=== PATIENT | male | born 1990 | race Caucasian/White ===

== ENCOUNTER 2025-09-29 14:31 | Emergency (ER) | payer SELFPAY ==
[~2025-09-29] VITALS: Ht 180.3 cm; Wt 14.5 kg
--- NOTE | 2025-09-29 14:54 | EKG ---
[facility] Test Date: 2025-09-29 Test Time: 14:45:31 Pat Name: LENNOX ANDREW Department: ED Room: Gender: M Medical Researcher: [id number] : 1990 Requested By: MALIA SKELTON Order Number: [id number] Reading MD: Lennox Haile Measurements Intervals [place] Rate: 80 P: 54 MS: 167 QRS: 29 QRSD: 88 T: 19 QT: 383 QTc: 443 Interpretive Statements Sinus arrhythmia ST elev, probable normal early repol pattern No previous ECG available for comparison Electronically Signed On 09-30-2025 08:47:39 DIRECTOR OF CASEWORK DEPARTMENT by Lennox Haile Please click the below link to view image of tracing.
[2025-09-29 15:00] LABS: IMMATURE GRANULOCYTE ABSOLUTE 0.05 K/uL (0-1); NUCLEATED RED BLOOD CELLS 0.0 % (0.0-0.19); PLATELET COUNT (AUTO) 212 K/uL (130-400); RED BLOOD CELL COUNT(AUTO) 5.23 MIL/uL (4.50-6.20); RED CELL DISTRIBUTION WIDTH 11.9 % (11.0-15.5); WHITE BLOOD COUNT (AUTO) 11.5 K/uL (4.8-10.8)
[2025-09-29 15:08] LABS: CREATININE 1.0 mg/dL (0.5-1.3); GLOMERULAR FILTR. RATE CALC 103.0 mL/min (>90); GLUCOSE,RANDOM 123.0 mg/dL (70-105); SODIUM SERUM 138.0 mmol/L (136-145); UREA NITROGEN, BLOOD 8.0 mg/dL (7-18)
[2025-09-29] MEDS: ASPIRIN 81MG CHEW TAB PO ONE (15:33)
[2025-09-29] MEDS: NITROGLYCERIN 0.4 MG SL TAB SL PRN (15:33)
--- NOTE | 2025-09-29 16:03 | HMCIMG ---
EXAM: CR Chest, 1 View. CLINICAL HISTORY: cp COMPARISON: None provided. FINDINGS: LUNGS: The lungs show no infiltrate or other acute finding. PLEURAL SPACES: No pleural effusion or pneumothorax. MEDIASTINUM: The cardiomediastinal silhouette is within normal limits. BONES: No aggressive appearing osseous lesion seen. IMPRESSION: No acute cardiopulmonary pathology is evident. /[place]
--- NOTE | 2025-09-29 17:37 | ERN ---
ED Note History of Present Illness Stated Complaint: CP Chief Complaint: Chest Pain Time Seen by MD: 14:34 Time Seen by Midlevel: 14:40 Dictation: 34 y/o m no past medical or surgical history coming in with complaints of chest pain, states pressure-like pain for the last three days. Denies having any recent illness. Denies any fever, shortness a breath, vomiting or diarrhea. Denies any drug use. Patient states he does smoke cigarettes and marijuana but no other drug use Allergies: Coded Allergies: No Known Drug Allergies (Unverified Allergy, Unknown, 09/29/25) Past Medical History Past Medical History: No Pertinent History Surgical History: None Review of System Dictation Constitutional: Negative for fever,chills, and weight loss Eyes: Negative for injury, pain,redness, and discharge ENT: Negative for injury,pain or swelling Cardiovascular: Complaining of chest pain Respiratory: Negative for shortness of breath, cough, and wheezing, Abdomen/GI: Negative for abdominal pain, nausea, vomiting, diarrhea, and co nstipation Back: Negative for injury and pain : Negative for injury, bleeding and discharge MS/Extremity: Negative for injury and deformity Skin: Negative for rash, and discoloration Neuro: Negative for headache, weakness, numbness, tingling, and seizure Psych: Negative for suicide ideation, homicidal ideation, and hallucinations Review of Systems: was completed Initial Vital Sign VS Vital Signs Date Time Temp Pulse Resp B/P (MAP) Pulse Ox O2 Delivery O2 Flow Rate FiO2 09/29/25 14:34 98.1 97 18 163/118 98 Room Air 09/29/25 15:35 0 21 Physical Exam Dictation General: awake, alert, NAD Head/Face: Normocephalic, atraumatic Eyes: PERRL, EOMI, vision at baseline ENT: oral cavity clear, TMs clear, no signs of infection Neck: Trachea midline, supple, no nuchal rigidity Cardiovascular: RRR, normal S1/S2, No MRGs, no JVD Respiratory: CTAB, no respiratory distress, No rales or wheezes Abdomen: Soft, non-tender, non-distended, normal bowel sounds, no guarding or rebound. Skin: Warm, dry, normal turgor, no rash MS/Extremity: Pulses equal, no cyanosis, neurovascular intact, FROM Neuro: COAx4, GCS 15, strength 5/5, CN 2-12 intact, normal cerebellar exam, normal gait, Psych: Normal behavior, mood, and affect normal Results (Laboratory/Radiology) Laboratory/Radiology Laboratory Tests Test 09/29/25 14:53 09/29/25 16:56 White Blood Count 11.5 K/uL (4.8-10.8) H Red Blood Count 5.23 MIL/uL (4.50-6.20) Hemoglobin 17.3 g/dL (14.0-18.0) Hematocrit 49.0 % (42-54) Mean Corpuscular Volume 93.7 fL (79-99) Mean Corpuscular Hemoglobin 33.1 pg (27.0-33.0) H Mean Corpuscular Hemoglobin Concent 35.3 g/dL (32.0-36.0) Red Cell Distribution Width 11.9 % (11.0-15.5) Platelet Count 212 K/uL (130-400) Mean Platelet Volume 11.3 fL (7.5-10.5) H Immature Granulocyte % (Auto) 0.4 % (0-1) Neutrophils (%) (Auto) 75.9 % (40.0-77.0) Lymphocytes (%) (Auto) 13.0 % (21.0-51.0) L Monocytes (%) (Auto) 9.9 % (3.0-13.0) Eosinophils (%) (Auto) 0.3 % (0.0-8.0) Basophils (%) (Auto) 0.5 % (0.0-5.0) Neutrophils # (Auto) 8.8 K/uL (1.8-7.7) H Lymphocytes # (Auto) 1.5 K/uL (1.0-4.8) Monocytes # (Auto) 1.1 K/uL (0.1-1.0) H Eosinophils # (Auto) 0.03 K/uL (0.00-0.70) Basophils # (Auto) 0.06 K/uL (0.00-0.20) Absolute Immature Granulocyte (auto 0.05 K/uL (0-1) Nucleated Red Blood Cells 0.0 % (0.0-0.19) Sodium Level 138 mmol/L (136-145) Potassium Level 3.7 mmol/L (3.5-5.1) Chloride Level 98 mmol/L (101-111) L Carbon Dioxide Level 28 mmol/L (21-32) Blood Urea Nitrogen 8 mg/dL (7-18) Creatinine 1.0 mg/dL (0.5-1.3) Glomerular Filtration Rate Calc 103 mL/min (>90) Random Glucose 123 mg/dL (70-105) H Total Calcium 9.5 mg/dL (8.5-10.1) Troponin I High Sensitivity 6 ng/L (4-75) 6 ng/L (4-75) Labs Reviewed?: Yes ED Course ED Course Orders Procedure Category Date Status Time Troponin I High LAB 09/29/25 Complete Sensitivity 14:44 Drug Screen Urine LAB 09/29/25 Logged 14:44 Chest 1vw RAD 09/29/25 Resulted 14:49 Cbc With Differential LAB 09/29/25 Complete 14:49 Basic Metabolic Panel LAB 09/29/25 Complete 14:49 Aspirin 81mg Chew Tab PHA 09/29/25 Complete (Aspirin 81mg Chew 15:00 Nitroglycerin 0.4mg PHA 09/29/25 In Process Sl Tab (Nitrostat) 15:00 12 Lead Ekg Tracing- EKG 09/29/25 Complete Technical 14:50 12 Lead Ekg Tracing- EKG 09/29/25 Logged Technical 15:12 Troponin I High LAB 09/29/25 Complete Sensitivity 16:49 Current Medications Medications (Trade) Dose Ordered Sig/Sergei Route PRN Reason Start Time Stop Time Status Last Admin Dose Admin Aspirin (Aspirin 81mg Chew Tab) 324 mg ONCE ONCE PO 09/29/25 15:00 09/29/25 15:01 DC 09/29/25 15:33 Nitroglycerin (Nitrostat) 0.4 mg AD PRN SL CHEST PAIN 09/29/25 15:00 10/29/25 14:59 09/29/25 15:33 Vital Signs Date Time Temp Pulse Resp B/P (MAP) Pulse Ox O2 Delivery O2 Flow Rate FiO2 09/29/25 16:30 97.9 86 16 144/88 99 Room Air* 0 09/29/25 15:35 98.4 98 15 170/97 98 Room Air* 0 09/29/25 14:34 98.1 97 18 163/118 98 Room Air HEART Score Response (Comments) Value History: Low suspicion (0) 0 EKG: Normal 0 Age: < 45yrs (0) 0 Risk Factors: No known risk factors (0) 0 Initial Troponin: Normal limit (0) 0 Total 0 Medical Decision Making MDM MDM: 34-year-old male with no known past medical history presents with a pressure-like chest pain for the past three days. Patient radiates to arm and not associated with nausea and vomiting diaphoresis shortness a breath syncope or exertional intolerance. No prior cardiac history and no known risk factors for coronary artery disease. Cardiac workup was performed. EKGs demonstrate sinus rhythm with a early repolarization pattern without ischemic ST elevations, depressions or T-wave inversions and no evidence of acute STEMI. Serial troponin x2 were negative significantly lowering risk of for NE ischemia or infarction. Laboratory evaluation was otherwise unremarkable with no electrolyte abnormalities, anemia, or infectious markers. Vital signs remained stable throughout the ED course. Patient was treated with sublingual nitroglycerin after which she reported improvement of chest discomfort he remained hemodynamically stable with no recurrence or worsening symptoms. Risk stratification was performed using heart score which calculated at 0, place the patient a low risk category for major adverse cardiac events. Given the nonischemic EKGs and negative serial troponins low heart score , stable vital signs, symptoms improvement in absence of concerning features areas a low suspicion for ACS for other life for any cardiopulmonary pathology at this time. So decision making was made and patient agrees with the patient management. Patient was educated on strict return precautions including chest pain, shortness a breath, arm pain, jaw pain, nausea or vomiting. Patient verbalized understanding, answered all questions. Differentials: ACS, gerd, costochondritis, Rationale: Tests considered and ordered secondary to shared decision making include: Previous outside records reviewed: Old ER visits. Risk of complication and/or morbidity or mortality of patient management: None Medications-Per medication reconciliation Need for hospitalization: Patient does not meet criteria for hospitalization. Need for emergency major/minor surgery: No There are no social concerns with this patient. Prescription drug management Prescriptions will include symptomatic care Patient's prior external medical records from other ER visits were reviewed by me as indicated. Prior testing and results from previous visits were reviewed. Prior tests were taken into account with medical decision making and resource utilization, independent historian/historians were used to obtain complete medical history. I independently interpreted the test that were performed, results were reviewed by me and considered findings on radiology if ordered. Medical management and examination interpretation discussions were had by me with other qualified healthcare professionals as indicated for the patient's care. DX & DISP Disposition: Discharge Departure Impression: Primary Impression: Chest pain, unspecified Condition: Stable Additional Instructions: Please return to the emergency room if you develop any severe worsening chest pain, jaw pain, back pain, nausea, vomiting. Otherwise obtain in his establish a primary care provider to have further evaluation. Referrals: SELF,REFERRAL (PCP) Time of Disposition: 17:35 I have reviewed the case, and I agree with, Diagnosis and Plan [facility] Sep 29, 2025 17:37
[2025-09-29 18:11] VITALS: BP 132/78; PULSE 80; RESP 18; TEMP 98.2; O2SAT 99
--- NOTE | 2025-09-30 08:41 | EKG ---
[facility] Test Date: 2025-09-29 Test Time: 14:36:45 Pat Name: LENNOX ANDREW Department: ED Room: Gender: M Consulting Application Engineer: [id number] : 1990 Requested By: MALIA SKELTON Order Number: [id number] Reading MD: Lennox Haile Measurements Intervals [place] Rate: 87 P: 49 [place]: 170 QRS: 22 QRSD: 88 T: 23 QT: 365 QTc: 440 Interpretive Statements Sinus rhythm ST elev, probable normal early repol pattern No previous ECG available for comparison Electronically Signed On 09-30-2025 08:47:34 SALES STOCK ASSOCIATE by Lennox Haile Please click the below link to view image of tracing.
== END 2025-09-29 18:18 | disposition home or self-care (01) ==
LOC: EDH 14:31
DX: R07.9 Chest pain, unspecified (principal)
CPT/HCPCS: 36415; 71045; 80048; 84484; 85025; 93005; 99285